=== PATIENT | female | born 1975 | race Caucasian/White ===

== ENCOUNTER 2018-03-13 03:50 | Emergency (ER) | payer OTHER ==
[2018-03-13 04:03] VITALS: BP 137/83
[2018-03-13 04:17] LABS: GLUCOSE, URINE (UA) NEGATIVE (NEGATIVE); KETONES,URINE (UA) NEGATIVE (NEGATIVE); LEUKOCYTE ESTERASE, URINE LARGE (NEGATIVE); NITRITE,URINE POSITIVE (NEGATIVE); OCCULT BLOOD,URINE LARGE (NEGATIVE); PH,URINE 6.5 PH (5.0-7.5); PROTEIN,URINE 100 mg/dL (NEGATIVE); UROBILINOGEN,URINE 0.2 (NORMAL) E.U./dL (NORMAL)
[2018-03-13 04:18] LABS: BILIRUBIN,URINE NEGATIVE (NEGATIVE); CLARITY,URINE BLOODY (CLEAR); ICTOTEST,URINE NEGATIVE; RBC,URINE TNTC /HPF (0-5); SQUAMOUS EPITHELIAL CELL,UR NONE SEEN (<= Few)
[2018-03-13 04:19] LABS: BACTERIA,URINE None Seen /HPF (None Seen)
[2018-03-13] MEDS ORDERED: CIPROFLOXACIN 250 MG TABLET PO STA (04:37)
--- NOTE | 2018-03-13 04:41 | ED Physician Documentation ---
PD HPI FEMALE - Stated complaint Stated Complaint: FEMALE - Chief complaint Chief Complaint: Abd Pain - History obtained from History obtained from: Patient - History of Present Illness Timing - onset: How many days ago (4) Timing - duration: Days (4) Timing - details: Gradual onset, Still present Associated symptoms: Dysuria, Urinary frequency Similar symptoms before: Diagnosis (UTI) Recently seen: Clinic (one month ago with UTI) - Additional information Additional information: 43-year-old female has developed symptoms of urinary tract infection about 4 days ago. She states that her symptoms were coming and going she did not really push fluids or anything and then yesterday afternoon her symptoms became worse. She is in here tonight with dysuria and bloody urine. Review of Systems Constitutional: denies: Fever Eyes: denies: Decreased vision Ears: denies: Ear pain Nose: denies: Congestion Throat: denies: Sore throat Cardiac: denies: Chest pain / pressure, Palpitations Respiratory: denies: Dyspnea, Cough GI: denies: Abdominal Pain, Nausea, Vomiting : reports: Dysuria, Frequency, Hematuria Musculoskeletal: reports: Back pain. denies: Neck pain, Extremity pain, Joint pain PD PAST MEDICAL HISTORY - Present Medications Home Medications: Ambulatory Orders Medication Instructions Recorded Confirmed Ciprofloxacin HCl [Cipro] 500 mg PO BID #10 tablet 03/13/18 - Allergies Allergies/Adverse Reactions: Allergies Allergy/AdvReac Type Severity Reaction Status Date / Time Sulfa (Sulfonamide AdvReac Hives Verified 03/13/18 04:35 Antibiotics) PD ED PE NORMAL - Vitals Vital signs reviewed: Yes (tachy and hypertensive ) - General General: Alert and oriented X 3, No acute distress, Well developed/nourished - HEENT HEENT: Atraumatic, PERRL, EOMI - Neck Neck: Supple, no meningeal sign - Cardiac Cardiac: RRR, No murmur - Respiratory Respiratory: No respiratory distress, Clear bilaterally - Back Back: No CVA TTP, No spinal TTP - Derm Derm: Normal color, Warm and dry, No rash - Extremities Extremities: No deformity, No edema - Neuro Neuro: Alert and oriented X 3, No motor deficit, No sensory deficit, Normal speech Eye Opening: Spontaneous Motor: Obeys Commands Verbal: Oriented GCS Score: 15 - Psych Psych: Normal mood, Normal affect Results - Vitals Vitals: Vital Signs - 24 hr 03/13/18 04:01 Temperature 36.5 C Heart Rate 101 H Respiratory 17 Rate Blood Pressure 137/83 H O2 Saturation 100 Oxygen O2 Source Room air - Labs Labs: Laboratory Tests 03/13/18 04:00 Urine Color RED/BLOODY Urine Clarity BLOODY Urine pH 6.5 Ur Specific [place] <=1.005 Urine Protein 100 H Urine Glucose (UA) NEGATIVE Urine Ketones NEGATIVE Urine Occult Blood LARGE H Urine Nitrite POSITIVE H Urine Bilirubin NEGATIVE Urine Urobilinogen 0.2 (NORMAL) Ur Leukocyte Esterase LARGE H Urine RBC TNTC H Urine WBC >25 H Ur Squamous Epith Cells NONE SEEN Urine Bacteria None Seen Ur Microscopic Review INDICATED Urine Culture Comments INDICATED PD MEDICAL DECISION MAKING - ED course Complexity details: reviewed results, re-evaluated patient, considered differential, d/w patient ED course: 43-year-old female with urinary tract symptoms has urinary tract infection and she has a lot of white blood cells and blood in her urine. She is administered Cipro here in the emergency department and she is given a Pyridium prepack. - Sepsis Event Vital Signs: Vital Signs - 24 hr 03/13/18 04:01 Temperature 36.5 C Heart Rate 101 H Respiratory 17 Rate Blood Pressure 137/83 H O2 Saturation 100 Oxygen O2 Source Room air Departure - Departure Disposition: 01 Home, Self Care Clinical Impression: Urinary tract infection Qualifiers: Urinary tract infection type: acute cystitis Hematuria presence: with hematuria Qualified Code(s): N30.01 - Acute cystitis with hematuria Instructions: ED UTI Cystitis Female Follow-Up: [facility] [Provider Group] Prescriptions: Ciprofloxacin HCl [Cipro] 500 mg PO BID #10 tablet
[2018-03-13] MEDS ORDERED: PHENAZOPYRIDINE 100 MG TABLETS (Prepack) PO PRN (04:46)
== END 2018-03-13 05:05 | disposition home or self-care (01) ==
LOC: ED 03:50
DX: N30.00 Acute cystitis without hematuria (principal)
CPT/HCPCS: 81001; 87086; 99283; A9270; 81003; 87181

== ENCOUNTER 2018-06-29 10:35 | Emergency (ER) | payer OTHER ==
[2018-06-29 11:10] LABS: BILIRUBIN,URINE NEGATIVE (NEGATIVE); GLUCOSE, URINE (UA) NEGATIVE (NEGATIVE); KETONES,URINE (UA) NEGATIVE (NEGATIVE); LEUKOCYTE ESTERASE, URINE NEGATIVE (NEGATIVE); NITRITE,URINE NEGATIVE (NEGATIVE); OCCULT BLOOD,URINE NEGATIVE (NEGATIVE); PH,URINE 6.5 PH (5.0-7.5); PROTEIN,URINE NEGATIVE (NEGATIVE); UROBILINOGEN,URINE 0.2 (NORMAL) E.U./dL (NORMAL)
[2018-06-29 11:11] LABS: CLARITY,URINE CLEAR (CLEAR)
[2018-06-29 11:15] LABS: HCG UR QUAL NEGATIVE
[2018-06-29] MEDS ORDERED: PHENAZOPYRIDINE 100 MG TABLET PO STA (11:53)
--- NOTE | 2018-06-29 11:55 | ED Physician Documentation ---
History of Present Illness - Stated complaint Stated Complaint: FEMALE - Chief complaint Chief Complaint: General - Additonal information Additional information: hx from pt healthy 43 f recrrent UTI tx lated May at [facility] for UTI with b she does not recall name of LMP just finished now with recurrent sx of dysuria and lower abd pain also some itching no dc swears she does not have an STD Review of Systems Constitutional: denies: Fever, Chills Cardiac: denies: Chest pain / pressure Respiratory: denies: Dyspnea GI: reports: Abdominal Pain (lower) : reports: Dysuria. denies: Discharge PD PAST MEDICAL HISTORY - Past Medical History Past Medical History: Yes Cardiovascular: None Respiratory: None Neuro: None Endocrine/Autoimmune: None GI: None THERAPEUTIC STRATEGY LEAD: None : None HEENT: None Psych: None Musculoskeletal: None Derm: None - Past Surgical History Past Surgical History: No - Present Medications Home Medications: Ambulatory Orders Medication Instructions Recorded Confirmed Cephalexin [Keflex] 500 mg PO Q6H #28 capsule 06/29/18 Cranberry 06/29/18 buPROPion [Wellbutrin Xl] 300 mg PO DAILY 06/29/18 06/29/18 - Allergies Allergies/Adverse Reactions: Allergies Allergy/AdvReac Type Severity Reaction Status Date / Time Sulfa (Sulfonamide AdvReac Hives Verified 06/29/18 10:41 Antibiotics) - Social History Does the pt smoke?: No Smoking Status: Never smoker Does the pt drink ETOH?: No Does the pt have substance abuse?: No - Immunizations Immunizations are current?: Yes - POLST Patient has POLST: No PD ED PE NORMAL - Vitals Vital signs reviewed: Yes - Cardiac Cardiac: RRR - Respiratory Respiratory: No respiratory distress - Abdomen Abdomen: Soft, Other (mild suprapubic pain, no focal RLQ pain and no peritoneal sx) - Female Female : Other (external = mild erythema no dc) Results - Vitals Vitals: Vital Signs - 24 hr 06/29/18 10:39 Temperature 36.2 C L Heart Rate 97 Respiratory 16 Rate Blood Pressure 124/89 H O2 Saturation 100 Oxygen O2 Source Room air - Labs Labs: Laboratory Tests 06/29/18 10:45 Urine Color YELLOW Urine Clarity CLEAR Urine pH 6.5 Ur Specific [place] <=1.005 Urine Protein NEGATIVE Urine Glucose (UA) NEGATIVE Urine Ketones NEGATIVE Urine Occult Blood NEGATIVE Urine Nitrite NEGATIVE Urine Bilirubin NEGATIVE Urine Urobilinogen 0.2 (NORMAL) Ur Leukocyte Esterase NEGATIVE Ur Microscopic Review NOT INDICATED Urine Culture Comments NOT INDICATED Urine HCG, Qual NEGATIVE PD MEDICAL DECISION MAKING - ED course ED course: called [facility] for cutlure results after about an hr got the UA but not the culture did learn pt was txed with macrobid still having sx may be partially txed do not have sensitivites to assist decision making will try keflex X 1 week and to be safe added on GC chlamydia to urine though feel this is unlikely cause per pt hx Departure - Departure Disposition: Home, Self Care Clinical Impression: Dysuria Condition: Good Instructions: ED Dysuria Uncertain Cause, Vaginal Infec Yeast Follow-Up: DWAYNE ROWE PA-C [Primary Care Provider] - Prescriptions: Cephalexin [Keflex] 500 mg PO Q6H #28 capsule Comments: I was not able to get the culture results from [facility] today But I did learn the antibiotic you took was called malik Since you are still having symptoms of a UTI and may be partially treated i have prescribed a new antibiotic called keflex - take every 6 hr for a week. We will run a urine culture and the ER staff will call you if the results indicate a need to change antibiotics And also recommend yeast infection cream which is available over the counter when you go to the pharmacy to fiber picker the antibiotic
[2018-06-29 12:55] VITALS: BP 122/84
== END 2018-06-29 12:56 | disposition home or self-care (01) ==
LOC: ED 10:35
DX: R30.0 Dysuria (principal)
CPT/HCPCS: 81003; 81025; 87491; 87591; 99283; A9270; 81001; 87086

== ENCOUNTER 2018-10-28 00:02 | Emergency (ER) | payer OTHER ==
[2018-10-28 00:08] VITALS: BP 146/98
[2018-10-28 00:20] LABS: BILIRUBIN,URINE NEGATIVE (NEGATIVE); GLUCOSE, URINE (UA) NEGATIVE (NEGATIVE); KETONES,URINE (UA) NEGATIVE (NEGATIVE); LEUKOCYTE ESTERASE, URINE MODERATE (NEGATIVE); NITRITE,URINE NEGATIVE (NEGATIVE); OCCULT BLOOD,URINE MODERATE (NEGATIVE); PROTEIN,URINE NEGATIVE (NEGATIVE); UROBILINOGEN,URINE 0.2 (NORMAL) E.U./dL (NORMAL)
[2018-10-28 00:23] LABS: CLARITY,URINE CLEAR (CLEAR)
[2018-10-28 00:27] LABS: HCG UR QUAL NEGATIVE
[2018-10-28 00:33] LABS: BACTERIA,URINE Rare /HPF (None Seen); RBC,URINE None Seen /HPF (0-5); SQUAMOUS EPITHELIAL CELL,UR RARE Squamous (<= Few)
[2018-10-28] MEDS ORDERED: PHENAZOPYRIDINE 100 MG TABLET PO STA (00:39)
[2018-10-28] MEDS ORDERED: cephALEXin 250 MG CAPSULE PO STA (00:39)
--- NOTE | 2018-10-28 00:41 | ED Physician Documentation ---
PD HPI FEMALE - Stated complaint Stated Complaint: FEM /CHILLS - Chief complaint Chief Complaint: UTI - Additional information Additional information: 43-year-old female presents to the emergency department with complaints of dysuria which started this evening. The patient has had ongoing intermittent episodes of urinary tract infections recently. The patient is scheduled to see urology in the next 2 weeks. The patient denies flank pain. This is similar to prior episodes. No triggering factors. The patient denies vaginal discharge, new sexual partners or any focal area of pain. 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 : Other HEENT: None Psych: None Musculoskeletal: None Derm: None Other Past Medical History: UTI - Past Surgical History Past Surgical History: No - Present Medications Home Medications: Ambulatory Orders Medication Instructions Recorded Confirmed buPROPion [Wellbutrin Xl] 300 mg PO DAILY 06/29/18 10/28/18 Cephalexin [Keflex] 500 mg PO BID #14 capsule 10/28/18 Phenazopyridine HCl [Pyridium] 200 mg PO TID PRN #6 tablet 10/28/18 - Allergies Allergies/Adverse Reactions: Allergies Allergy/AdvReac Type Severity Reaction Status Date / Time Sulfa (Sulfonamide AdvReac Hives Verified 10/28/18 00:13 Antibiotics) - Social History Does the pt smoke?: No Smoking Status: Never smoker Does the pt drink ETOH?: No Does the pt have substance abuse?: No - Immunizations Immunizations are current?: Yes - POLST Patient has POLST: No PD ED PE NORMAL - General General: Alert and oriented X 3, No acute distress - HEENT HEENT: Atraumatic, PERRL, EOMI, Ears normal - Cardiac Cardiac: RRR - Respiratory Respiratory: No respiratory distress, Clear bilaterally - Back Back: No CVA TTP - Derm Derm: Normal color - Extremities Extremities: No deformity - Neuro Neuro: Alert and oriented X 3, Normal speech - Psych Psych: Normal affect Results - Vitals Vitals: Vital Signs - 24 hr 10/28/18 00:05 Temperature 36.6 C Heart Rate 89 Respiratory 18 Rate Blood Pressure 146/98 H O2 Saturation 100 Oxygen O2 Source Room air - Labs Labs: Laboratory Tests 10/28/18 10/28/18 00:12 00:12 Urine Color YELLOW Urine Clarity CLEAR Urine pH 7.0 Ur Specific [place] <=1.005 <=1.005 Urine Protein NEGATIVE Urine Glucose (UA) NEGATIVE Urine Ketones NEGATIVE Urine Occult Blood MODERATE H Urine Nitrite NEGATIVE Urine Bilirubin NEGATIVE Urine Urobilinogen 0.2 (NORMAL) Ur Leukocyte Esterase MODERATE H Urine RBC None Seen Urine WBC 11-25 H Ur Squamous Epith Cells RARE Squamous Urine Bacteria Rare Ur Microscopic Review INDICATED Urine Culture Comments INDICATED Urine HCG, Qual NEGATIVE PD MEDICAL DECISION MAKING - ED course ED course: The patient will be treated for an acute urinary tract infection, the patient appears appropriate for ongoing outpatient management with oral antibiotics. I discussed warning signs and recommended returning to the emergency department immediately for any worsening or concerns. Departure - Departure Disposition: 01 Home, Self Care Clinical Impression: Cystitis Condition: Good Instructions: ED UTI Cystitis Female Prescriptions: Cephalexin [Keflex] 500 mg PO BID #14 capsule Phenazopyridine HCl [Pyridium] 200 mg PO TID PRN #6 tablet PRN Reason: dysuria Comments: Please follow-up with primary care for recheck and reevaluation Please follow-up with the urologist as scheduled to further assess your recurrent urinary tract infections Please return to the emergency department for any worsening or any concerns
== END 2018-10-28 00:47 | disposition home or self-care (01) ==
LOC: ED 00:02
DX: N30.00 Acute cystitis without hematuria (principal)
CPT/HCPCS: 81001; 81025; 87086; 99283; A9270; 81003